=== PATIENT | female | born 1945 | race African-American/Black ===

== ENCOUNTER 2020-12-24 11:45 | Outpatient (CLI) | payer MEDICARE, MEDICAID, BC ==
[2020-12-25 04:28] LABS: SARS-CoV-2 PCR by NAA Not Detected (NotDetected)
== END 2020-12-24 11:46 | disposition home or self-care (01) ==
LOC: CSHLAB 11:45
PROVIDERS: ATTEND Internal Medicine Pulmonary Disease
DX: Z20.822 Contact with and (suspected) exposure to COVID-19 (principal); R06.09 Other forms of dyspnea
CPT/HCPCS: 87635; U0003; U0005

== ENCOUNTER 2020-12-29 11:49 | Outpatient (CLI) | payer MEDICARE, MEDICAID | END 2020-12-29 11:50 | disposition home or self-care (01) | LOC: CSHCP 11:49 | PROVIDERS: ATTEND Internal Medicine Pulmonary Disease | DX: R06.09 Other forms of dyspnea (principal); R94.2 Abnormal results of pulmonary function studies | CPT/HCPCS: 94010; 94726 ==

== ENCOUNTER 2024-04-03 16:52 | Emergency (ER) | payer OTHER, MEDICAID ==
[~2024-04-03 16:52] MED LIST: Iopamidol 370 76% 100 ML VIAL ONE
[2024-04-03 18:06] LABS: Bilirubin Neg (Negative); Blood, Urine Negative (Negative); Clarity Clear (Clear); Glucose, Urine (Dipstick) Normal (Negative); Ketone, Urine Negative (Negative); Leukocyte Negative (Negative); Nitrite Negative (Negative); Protein, Urine (Dipstick) 100 mg/dl (Neg-Trace); Urobilinogen Normal mg/dL (Less than 2)
[2024-04-03 18:08] LABS: CAUTI Indications for Culture Dysuria,urgency,freq; RBC/HPF None Seen HPF (0-3); Squamous Epithelial 0-3 HPF (0-3); Transitional Epithelial 0-3 HPF (None Seen); WBC/HPF 0-3 HPF (0-3)
[2024-04-03 18:09] LABS: Bacteria/HPF 1+ HPF (None Seen)
[2024-04-03 18:10] LABS: Mucous/LPF 1+ LPF (<2+); Urine Culture Reflex No No
[2024-04-03] MEDS ORDERED: Tranexamic Acid 1,000 MG/10 ML VIAL ONE (18:13)
[2024-04-03] MEDS ORDERED: Pantoprazole 40 MG VIAL ONE (18:13)
[2024-04-03 18:18] LABS: #Basophils 0.01 10x3/uL (0.0-0.2); #Eosinphils 0.06 10x3/uL (0.0-0.5); #Monocytes 1.21 10x3/uL (0.0-1.1); #Neutrophils 12.06 10x3/uL (1.5-8.4); %Basophils 0.1 % (0.0-2.0); %Eosinophils 0.4 % (0.0-6.0); %Lymphocytes 18.3 % (18.0-47.0); %Monocytes 7.3 % (0.0-10.0); Hemoglobin 8.4 g/dL (12.0-15.5); Mean Corpuscular HGB CONC 33.6 g/dL (32.0-36.0); Mean Corpuscular Hemoglobin 29.1 pg (27.0-33.0); Mean Corpuscular Volume 86.5 fL (81.6-98.3); Mean Platelet Volume 9.7 fL (7.4-10.4); Platelet Count 333 10x3/uL (150-450); RBC Distribution Width 15.5 % (11.5-14.5); Red Blood Cell (RBC) Count 2.89 10x6/uL (3.90-5.03); White Blood Cell (WBC) Count 16.5 10x3/uL (3.5-10.5)
[2024-04-03 18:27] LABS: INR-International Normal Ratio 1.1; PTT 31.9 sec (22.0-33.0); Prothrombin Time 12.2 sec (9.5-12.1)
[2024-04-03 18:30] LABS: ALT (SGPT) 13 U/L (8-55); AST (SGOT) 17 U/L (5-34); Albumin 1.9 g/dL (3.4-4.8); Alkaline Phosphatase 137 U/L (40-110); Anion Gap 11 mmol/L (10-20); BUN (Urea Nitrogen) 16 mg/dL (9.8-20.1); Bilirubin, Total 0.4 mg/dL (0.2-1.2); Calc. Creatinine Clearance 0 mL/min (70-130); Carbon Dioxide 17 mmol/L (23-31); Chloride 112 mmol/L (98-107); Estimated GFR 76; Globulin 2.6 g/dL (2.4-3.5); Glucose 171 mg/dL (83-110); Potassium 3.1 mmol/L (3.5-5.1); Protein, Total 4.5 g/dL (5.8-8.1); Sodium 137 mmol/L (136-145)
[2024-04-03 18:33] LABS: Troponin I 0.038 ng/mL (< 0.028)
[2024-04-03] MEDS ORDERED: Calcium Gluc 4.6 MEQ/10 ML (100 MG/ML) ONE (19:16)
[2024-04-03] MEDS ORDERED: Potassium Chloride 20 MEQ (100 mL) BAG ONE (20:05)
[2024-04-03] MEDS ORDERED: Potassium Chloride 20 MEQ in Premix 1 BAG IVPB SCH (20:30)
== END 2024-04-03 21:43 | disposition short-term general hospital (02) ==
LOC: CSHERS 16:52
DX: K92.2 Gastrointestinal hemorrhage, unspecified (principal); R53.83 Other fatigue; R79.89 Other specified abnormal findings of blood chemistry; J44.9 Chronic obstructive pulmonary disease, unspecified; I10 Essential (primary) hypertension; E11.9 Type 2 diabetes mellitus without complications; Z87.891 Personal history of nicotine dependence
CPT/HCPCS: 36430; 51701; 71045; 74174; 80053; 81001; 83605; 83735; 83880; 84484; 85025; 85610; 85730; 86850; 86900; 86901; 86920; 93005; 96374; 96375; 99285; C9113; J0612; J3480; P9016; 36415

== ENCOUNTER 2024-10-09 10:28 | Emergency (ER) | payer OTHER, MEDICAID ==
[2024-10-09 11:06] LABS: #Basophils 0.03 10x3/uL (0.0-0.2); #Eosinophils 0.05 10x3/uL (0.0-0.5); #Neutrophils 3.91 10x3/uL (1.5-8.4); %Basophils 0.4 % (0.0-2.0); %Eosinophils 0.7 % (0.0-6.0); %Lymphocytes 37.8 % (18.0-47.0); %Monocytes 9.2 % (0.0-10.0); %Neutrophils 51.5 % (40.0-75.0); Hemoglobin 11.7 g/dL (12.0-15.5); Mean Corpuscular HGB CONC 31.6 g/dL (32.0-36.0); Mean Corpuscular Volume 82.2 fL (81.6-98.3); Mean Platelet Volume 8.7 fL (7.4-10.4); Platelet Count 358 10x3/uL (150-450); RBC Distribution Width 20.3 % (11.5-14.5); White Blood Cell (WBC) Count 7.6 10x3/uL (3.5-10.5)
[2024-10-09 11:16] LABS: PTT 27.5 sec (22.0-33.0); Prothrombin Time 11.2 sec (9.5-12.1)
[2024-10-09 11:28] LABS: Troponin I Less than 0.010 ng/mL (< 0.028)
[2024-10-09 11:29] LABS: ALT (SGPT) 23 U/L (8-55); AST (SGOT) 24 U/L (5-34); Albumin 3.1 g/dL (3.4-4.8); Alkaline Phosphatase 175 U/L (40-110); Anion Gap 12 mmol/L (10-20); BUN (Urea Nitrogen) 11 mg/dL (9.8-20.1); Bilirubin, Total 0.5 mg/dL (0.2-1.2); Calc. Creatinine Clearance 0 mL/min (70-130); Calcium 9.1 mg/dL (7.8-10.44); Carbon Dioxide 20 mmol/L (23-31); Chloride 105 mmol/L (98-107); Estimated GFR 56; Globulin 3.6 g/dL (2.4-3.5); Glucose 123 mg/dL (83-110); Lipase 18 U/L (8-78); Potassium 4.4 mmol/L (3.5-5.1); Protein, Total 6.7 g/dL (5.8-8.1); Sodium 133 mmol/L (136-145)
[2024-10-09 15:06] LABS: Troponin I Less than 0.010 ng/mL (< 0.028)
[2024-10-09] MEDS ORDERED: Acetaminophen 325 MG TAB ONE (15:27)
== END 2024-10-09 17:15 ==
LOC: CSHERS 10:28
DX: R07.89 Other chest pain (principal); J44.9 Chronic obstructive pulmonary disease, unspecified; I10 Essential (primary) hypertension; E11.9 Type 2 diabetes mellitus without complications; Z55.0 Illiteracy and low-level literacy; Z87.891 Personal history of nicotine dependence
CPT/HCPCS: 36415; 71045; 80053; 83690; 83735; 84484; 85025; 85610; 85730; 93005; 93010

== ENCOUNTER 2024-10-17 09:21 | Outpatient (CLI) | payer OTHER, MEDICAID | END 2024-10-17 09:22 | disposition home or self-care (01) | LOC: CSHULT 09:21 | PROVIDERS: ATTEND Physician Assistant Medical | DX: K92.1 Melena (principal); K64.8 Other hemorrhoids; R74.8 Abnormal levels of other serum enzymes; K80.20 Calculus of gallbladder without cholecystitis without obstruction | CPT/HCPCS: 76705 ==